=== PATIENT | male | born 1990 | race Caucasian/White ===

== ENCOUNTER 2017-12-01 21:21 | Emergency (ER) | payer MEDICARE, MEDICAID ==
[~2017-12-01] VITALS: Ht 182.9 cm; Wt 74.5 kg
[~2017-12-01 21:21] MED LIST: CLIN-80 PO
[2017-12-01 21:32] VITALS: BP 142/82
[2017-12-01 22:24] LABS: CLARITY,URINE CLEAR (Clear); COLOR,URINE STRAW (Yellow); GLUCOSE, URINE NEGATIVE (Neg); KETONES,URINE NEGATIVE (Neg); LEUKOCYTE ESTERASE ,URINE NEGATIVE (Neg); NITRITES, URINE NEGATIVE (Neg); OCCULT BLOOD,URINE SMALL (Neg); PROTEIN,URINE NEGATIVE (Neg); UROBILINOGEN,URINE 0.2 E.U/dL (0.2-1.0)
[2017-12-01 22:25] LABS: UA COLLECTION TYPE NON-SPECIFIED
[2017-12-01 22:26] LABS: HYALINE CASTS 0-3 /LPF (NEGATIVE); MUCUS STRANDS FEW /LPF (Neg)
[2017-12-01 22:27] LABS: BACTERIA,URINE FEW /HPF (Neg); SQUAMOUS EPITHELIAL CELL,UR FEW /LPF (FEW)
[2017-12-01 22:28] LABS: RBC,URINE NONE SEEN /HPF (0-2)
[2017-12-01] MEDS ORDERED: IBUP-1985 PO (22:43)
== END 2017-12-01 23:05 | disposition home or self-care (01) ==
LOC: ER 21:22
DX: M54.5 Low back pain (principal); Z88.0 Allergy status to penicillin; Z88.1 Allergy status to other antibiotic agents
CPT/HCPCS: 81001; 87088; 99284

== ENCOUNTER 2023-01-12 20:06 | Emergency (ER) | payer MEDICARE, MEDICAID ==
[~2023-01-12] VITALS: Ht 175.3 cm; Wt 81.8 kg
[~2023-01-12 20:06] MED LIST changes: -HYDR-3965 PO; -ONDA4TAB12 PO
[2023-01-12] MEDS ORDERED: HYDR-3965 PO (20:15)
[2023-01-12] MEDS ORDERED: ONDA4TAB12 PO (20:15)
[2023-01-12 20:58] VITALS: BP 126/80
== END 2023-01-12 21:04 | disposition home or self-care (01) ==
LOC: ER 20:07
DX: S52.501A Unspecified fracture of the lower end of right radius, initial encounter for closed fracture (principal); Z88.1 Allergy status to other antibiotic agents; Z88.8 Allergy status to other drugs, medicaments and biological substances; X58.XXXA Exposure to other specified factors, initial encounter; Y93.89 Activity, other specified; Y92.89 Other specified places as the place of occurrence of the external cause; Y99.8 Other external cause status
CPT/HCPCS: 29125; 73060; 99283

== ENCOUNTER → 2023-01-12 | Emergency (ER) | payer MEDICARE, MEDICAID ==
[~2023-01-12] VITALS: Ht 182.9 cm; Wt 77.0 kg
[~2023-01-12] MED LIST changes: -CLIN-80 PO; +CLIN-97 PO; +HYDR-3965 PO; +IBUP-1985 PO; +ONDA4TAB12 PO
[2023-01-12 17:56] VITALS: BP 125/85
== END | disposition home or self-care (01) ==
LOC: ER 17:31
DX: S63.501A Unspecified sprain of right wrist, initial encounter (principal); V00.131A Fall from skateboard, initial encounter; Y93.89 Activity, other specified; Y92.89 Other specified places as the place of occurrence of the external cause; Y99.8 Other external cause status; Z88.1 Allergy status to other antibiotic agents; Z88.8 Allergy status to other drugs, medicaments and biological substances
CPT/HCPCS: 73110; 99284